=== PATIENT | female | born 2000 | race Caucasian/White ===

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

== ENCOUNTER 2019-01-08 00:45 | Emergency (ER) | payer MEDICAID ==
[2019-01-08 01:01] VITALS: BP 123/48; PULSE 91
[2019-01-08] MEDS ORDERED: predniSONE 20 MG Tab PO ONE (01:24)
--- NOTE | 2019-01-08 01:57 | EDM.PDOC ---
ED HPI GENERAL MEDICAL PROBLEM - General Chief Complaint: Lower Extremity Injury/Pain Stated Complaint: LEFT LEG PAIN Time Seen by Provider: 01/08/19 01:11 Source of Information: Reports: Patient, RN Notes Reviewed - History of Present Illness INITIAL COMMENTS - FREE TEXT/NARRATIVE: 18 year old female comes in with LLE pain. This first started about 3 wks ago. Was primarily L lateral mid thigh and now since last evening radiating down her leg clear to her foot. No weakness, numbness or tingling. Not aware of any injury. No visible swelling. No chest pain or difficulty breathing. Left Upper Leg Pain Score (Numeric/FACES): 5 - Related Data Allergies Allergy/AdvReac Type Severity Reaction Status Date / Time No Known Allergies Allergy Verified 01/08/19 00:59 Home Meds: Home Meds predniSONE [Prednisone] 50 mg PO DAILY #5 tablet 01/08/19 [Rx] Past Medical History - Past Health History Medical/Surgical History: Denies Medical/Surgical History HEENT History: Reports: Impaired Vision Cardiovascular History: Reports: Hypertension MECHANICAL SUPERVISOR History: Reports: Other (See Below) Other MECHANICAL SUPERVISOR History: implant for control Psychiatric History: Reports: ADHD, Anxiety, Bipolar, Depression, Emotional Problems, Psych Hospitalization(s), Suicide Attempt Other Psychiatric History: BPD Endocrine/Metabolic History: Reports: Obesity/BMI 30+ - Past Surgical History HEENT Surgical History: Reports: Oral Surgery Social & Family History - Family History Family Medical History: Noncontributory - Tobacco Use Smoking Status *Q: Former Smoker Used Tobacco, but Quit: Yes Month/Year Tobacco Last Used: 12/2018 - Caffeine Use Caffeine Use: Reports: Coffee - Recreational Drug Use Recreational Drug Use: Yes Recreational Drug Type: Reports: Marijuana/Hashish - Living Situation & Occupation Living situation: Reports: Single, Other Occupation: Unemployed Review of Systems - Review of Systems Review Of Systems: See Below Constitutional: Reports: No Symptoms Mouth/Throat: Reports: No Symptoms Respiratory: Denies: Shortness of Breath Cardiovascular: Denies: Chest Pain GI/Abdominal: Denies: Abdominal Pain, Nausea, Vomiting Genitourinary: Reports: No Symptoms Musculoskeletal: Reports: Leg Pain. Denies: Back Pain Skin: Reports: No Symptoms Neurological: Denies: Numbness, Tingling, Weakness ED EXAM, GENERAL - Physical Exam Exam: See Below General Appearance: Alert, No Apparent Distress Throat/Mouth: Normal Inspection Head: Atraumatic Neck: Supple Respiratory/Chest: No Respiratory Distress, Lungs Clear Cardiovascular: Regular Rate, Rhythm Back Exam: No: CVA Tenderness (L), CVA Tenderness (R), Paraspinal Tenderness, Vertebral Tenderness Extremities: Normal Inspection, Other (upper and lower legs nontender, no swelling or bruising). No: Leg Pain, Increased Warmth, Redness Neurological: No Motor/Sensory Deficits, Other (very mild pain with L straight leg raising) Skin Exam: Warm, Dry, Normal Color, No Rash Course - Vital Signs Last Recorded V/S: Last Vital Signs Temp 96.8 F 01/08/19 00:59 Pulse 91 01/08/19 00:59 Resp 18 01/08/19 00:59 BP 123/48 L 01/08/19 00:59 Pulse Ox 98 01/08/19 00:59 - Orders/Labs/Meds Meds: Medications Discontinued Medications Generic Name Dose Route Start Last Admin Trade Name Justo PRN Reason Stop Dose Admin Prednisone 60 mg 01/08/19 01:24 01/08/19 01:39 Prednisone PO 01/08/19 01:25 60 mg ONETIME ONE Administration Departure - Departure Time of Disposition: 01:58 Disposition: Home, Self-Care 01 Condition: Fair Clinical Impression: Sciatica Qualifiers: Laterality: left Qualified Code(s): M54.32 - Sciatica, left side - Discharge Information Prescriptions: predniSONE [Prednisone] 50 mg PO DAILY #5 tablet Instructions: Sciatica Referrals: PCP,None [Primary Care Provider] - Forms: ED Department Discharge Additional Instructions: Continue Advil or ibuprofen, take 3 tabs or 600 mg 3 times daily with food for pain and inflammation, disown 50 mg daily for the next 5 days. Alternate ice and heat to area of discomfort as needed. Follow-up [facility] medical clinic with one of our medical providers early next week. Call [phone] for appointment.
== END 2019-01-08 02:05 | disposition home or self-care (01) ==
LOC: JD.ED 00:45
DX: M54.32 Sciatica, left side (principal); I10 Essential (primary) hypertension; E66.9 Obesity, unspecified; Z68.54 Body mass index [BMI] pediatric, 95th percentile for age to less than 120% of the 95th percentile for age; Z87.891 Personal history of nicotine dependence; Z79.899 Other long term (current) drug therapy
CPT/HCPCS: 99283; A9270

== ENCOUNTER 2019-10-07 21:53 | Emergency (ER) | payer MEDICAID ==
[2019-10-07 22:04] VITALS: BP 103/44; PULSE 93
--- NOTE | 2019-10-07 22:35 | EDM.PDOC ---
ED HPI GENERAL MEDICAL PROBLEM - General Chief Complaint: LEAF SIZE PICKER Problem Stated Complaint: OB ISSUES Time Seen by Provider: 10/07/19 22:04 Source of Information: Reports: Patient, Other (Friend) History Limitations: Reports: No Limitations - History of Present Illness INITIAL COMMENTS - FREE TEXT/NARRATIVE: Ms. Patricia is a pleasant 19-year-old woman with a past medical history s ignificant for anxiety, depression, bipolar affective disorder, ADHD, and borderline personality disorder, who now presents the ED stating that she has Nexplanon, and therefore does not regularly menstruate, however, she developed some vaginal spotting around 14:00 today, therefore she inserted a tampon. When she went to remove it around 20:30 to 21:00 this evening, she was unable to find the string or palpate the tampon. She is concerned that it has moved up into her vagina. There is no associated pain. No prior similar symptoms. Here in the ED, the patient's BP is found to be mildly low at 103/44, otherwise, she is hemodynamically stable, afebrile, saturating 99% on room air. Other than today's event, the patient denies recent fever, chills, sore throat, ear pain, nasal or sinus congestion, cough, dyspnea, chest pain, palpitations, nausea, vomiting, constipation, diarrhea, abdominal pain, urinary symptoms, recent weight gain or weight loss, recent bloody bowel movements or black bowel movements, recent joint aches, headaches, or rashes. The patient's Emergency Communications Dispatcher is Dr. Marian Mehta. - Related Data Allergies Allergy/AdvReac Type Severity Reaction Status Date / Time No Known Allergies Allergy Verified 10/07/19 22:04 Home Meds: Home Meds ClonazePAM [KlonoPIN] 0.5 mg PO DAILY 10/07/19 [History] Venlafaxine HCl [Venlafaxine ER] 37.5 mg PO DAILY 10/07/19 [History] Past Medical History HEENT History: Reports: Impaired Vision Psychiatric History: Reports: ADHD, Anxiety, Bipolar, Depression, Emotional Problems, Psych Hospitalization(s), Suicide Attempt, Other (See Below) (Borderline personality disorder) Endocrine/Metabolic History: Reports: Obesity/BMI 30+ - Past Surgical History HEENT Surgical History: Reports: Oral Surgery (wisdom teeth extraction) Social & Family History - Family History Family Medical History: Noncontributory - Tobacco Use Smoking Status *Q: Current Every Day Smoker Tobacco Use Within Last Twelve Months: Vaping (nicotine and THC) - Caffeine Use Caffeine Use: Reports: None - Alcohol Use Alcohol Use History: Yes Alcohol Use Frequency: Socially - Recreational Drug Use Recreational Drug Use: Yes Drug Use in Last 12 Months: Yes Recreational Drug Type: Reports: Marijuana/Hashish (smokes regularly) - Living Situation & Occupation Living situation: Reports: Single, Other (Roomate) Occupation: Employed ([employer]) ED ROS GENERAL - Review of Systems Review Of Systems: Comprehensive ROS is negative, except as noted in HPI. ED EXAM, RENAL/ - Physical Exam Exam: See Below Exam Limited By: No Limitations General Appearance: Alert, WD/WN, No Apparent Distress (Female) Exam: Normal External Exam, Other (There is a small amount of old blood in the vagina, but no active bleeding. The cervix is closed and nulliparous.) Course - Vital Signs Last Recorded V/S: Last Vital Signs Temp 37.0 C 10/07/19 22:03 Pulse 93 10/07/19 22:03 Resp 16 10/07/19 22:03 BP 103/44 L 10/07/19 22:03 Pulse Ox 99 10/07/19 22:03 - Re-Assessments/Exams Free Text/Narrative Re-Assessment/Exam: 10/07/19 22:30 On careful speculum examination, there was a small amount of old blood seen in the vagina, with a nonbleeding closed nulliparous cervix, but no foreign body, such as a tampon, in the vagina. The patient may safely be discharged home. Departure - Departure Time of Disposition: 22:33 Disposition: Home, Self-Care 01 Condition: Good Clinical Impression: Vaginal spotting - Discharge Information *PRESCRIPTION DRUG MONITORING PROGRAM REVIEWED*: Not Applicable *COPY OF PRESCRIPTION DRUG MONITORING REPORT IN PATIENT JESSICA: Not Applicable Referrals: Marian Mehta MD [Physician] - Forms: ED Department Discharge Additional Instructions: You were seen in the emergency room over concern of a retained tampon in the vagina, when the string could not be felt. On speculum examination of your vagina, no tampon was present. You may resume your usual activities. If any other problems, please do not hesitate to return to the ER. Sepsis Event Note (ED) - Evaluation Sepsis Screening Result: No Definite Risk - Focused Exam Vital Signs: Vital Signs Temp Pulse Resp BP Pulse Ox 10/07/19 22:03 37.0 C 93 16 103/44 L 99
== END 2019-10-07 22:54 | disposition home or self-care (01) ==
LOC: JD.ED 21:53
DX: N93.9 Abnormal uterine and vaginal bleeding, unspecified (principal); F41.9 Anxiety disorder, unspecified; F31.9 Bipolar disorder, unspecified; F90.9 Attention-deficit hyperactivity disorder, unspecified type; F17.290 Nicotine dependence, other tobacco product, uncomplicated; E66.9 Obesity, unspecified; Z68.41 Body mass index [BMI] 40.0-44.9, adult; Z79.899 Other long term (current) drug therapy
CPT/HCPCS: 99283

== ENCOUNTER 2019-11-21 19:31 | Emergency (ER) | payer MEDICAID ==
[2019-11-21 19:45] VITALS: BP 92/76; PULSE 96
--- NOTE | 2019-11-21 20:01 | EDM.PDOC ---
ED HPI GENERAL MEDICAL PROBLEM - General Chief Complaint: Lower Extremity Injury/Pain Stated Complaint: right ankle pain Time Seen by Provider: 11/21/19 19:32 Source of Information: Reports: Patient History Limitations: Reports: No Limitations - History of Present Illness INITIAL COMMENTS - FREE TEXT/NARRATIVE: Patient is a 19-year-old female who presents to the emergency department with complaints of right ankle pain. States that she rolled her ankle about 30 minutes prior to coming to the ER. She felt a pop and has been having pain to the lateral malleolus ever since. She has been able to bear weight on the extremity. She presents with an ankle brace that she had at home. She denies any previous injury to this extremity. Right Ankle Pain Score (Numeric/FACES): 6 - Related Data Allergies Allergy/AdvReac Type Severity Reaction Status Date / Time No Known Allergies Allergy Verified 11/21/19 19:45 Home Meds: Home Meds ClonazePAM [KlonoPIN] 0.5 mg PO DAILY 10/07/19 [History] Venlafaxine HCl [Venlafaxine ER] 37.5 mg PO DAILY 10/07/19 [History] Past Medical History - Past Health History Medical/Surgical History: Denies Medical/Surgical History HEENT History: Reports: Impaired Vision Cardiovascular History: Reports: Hypertension [employer] History: Reports: Other (See Below) Other [employer] History: implant for control Psychiatric History: Reports: ADHD, Anxiety, Bipolar, Depression, Emotional Problems, Psych Hospitalization(s), Suicide Attempt, Other (See Below) Other Psychiatric History: BPD Endocrine/Metabolic History: Reports: Obesity/BMI 30+ - Past Surgical History HEENT Surgical History: Reports: Oral Surgery Social & Family History - Family History Family Medical History: Noncontributory - Tobacco Use Smoking Status *Q: Current Every Day Smoker Years of Tobacco use: 2 Packs/Tins Daily: 0.5 - Caffeine Use Caffeine Use: Reports: Coffee, Soda - Recreational Drug Use Recreational Drug Use: Yes Drug Use in Last 12 Months: Yes Recreational Drug Type: Reports: Marijuana/Hashish Recreational Drug Use Frequency: Monthly - Living Situation & Occupation Living situation: Reports: Single, Other (Roomate) Occupation: Employed (Hotel) Review of Systems - Review of Systems Review Of Systems: Comprehensive ROS is negative, except as noted in HPI. ED EXAM, GENERAL - Physical Exam Exam: See Below Exam Limited By: No Limitations General Appearance: Alert, WD/WN, No Apparent Distress Respiratory/Chest: No Respiratory Distress, Lungs Clear, Normal Breath Sounds, No Accessory Muscle Use, Chest Non-Tender Cardiovascular: Normal Peripheral Pulses, Regular Rate, Rhythm, No Edema, No Gallop, No JVD, No Murmur, No Rub Extremities: Other (Small amount of edema and tenderness to palpation to the lateral malleoli are area of the right ankle. No obvious deformity. Patient has full range of motion of the ankle, however it is painful.) Neurological: Alert, Oriented, CN II-XII Intact, Normal Cognition, Normal Gait, Normal Reflexes, No Motor/Sensory Deficits Psychiatric: Normal Affect, Normal Mood Course - Vital Signs Last Recorded V/S: Last Vital Signs Temp 99.2 F 11/21/19 19:37 Pulse 96 11/21/19 19:37 Resp 18 11/21/19 19:37 BP 92/76 11/21/19 19:37 Pulse Ox 97 11/21/19 19:37 - Orders/Labs/Meds Orders: Active Orders 24 hr Category Date Time Status Ankle Min 3V Rt [CR] Stat Exams 11/21/19 19:46 Taken - Re-Assessments/Exams Free Text/Narrative Re-Assessment/Exam: 11/21/19 20:14 X-ray of the right ankle was negative for any acute fractures. We will provide the patient with an air splint for comfort. Advised if she still having pain after 1 week, that she should follow-up in the clinic with Dr. Benavidez. Discharge instructions as documented. Departure - Departure Time of Disposition: 20:15 Disposition: Home, Self-Care 01 Condition: Good Clinical Impression: Ankle sprain Qualifiers: Encounter type: initial encounter Involved ligament of ankle: unspecified ligament Laterality: right Qualified Code(s): S93.401A - Sprain of unspecified ligament of right ankle, initial encounter - Discharge Information *PRESCRIPTION DRUG MONITORING PROGRAM REVIEWED*: No *COPY OF PRESCRIPTION DRUG MONITORING REPORT IN PATIENT JESSICA: No Instructions: Ankle Sprain, [id number] Referrals: Raul Benavidez MD [Physician] - Forms: ED Department Discharge Additional Instructions: You were seen in the emergency department this evening for pain to your right ankle. Xrays were completed and show no visible fractures. It is likely that you sprain the lateral ligaments of your ankle. You have been provided an air splint. Wear this for comfort over the next few days. Recommend that you ice and elevated the ankle when at rest. You may use over the counter tylenol or ibuprofen as needed for pain. If you are still have significant discomfort after 1 weeks, recommend that you schedule an appointment with orthopedist, Dr. Benavidez. Return to the ER as needed. Sepsis Event Note (ED) - Evaluation Sepsis Screening Result: No Definite Risk - Focused Exam Vital Signs: Vital Signs Temp Pulse Resp BP Pulse Ox 11/21/19 19:37 99.2 F 96 18 92/76 97 - My Orders Last 24 Hours: My Active Orders 11/21/19 19:46 Ankle Min 3V Rt [CR] Stat - Assessment/Plan Last 24 Hours: My Active Orders 11/21/19 19:46 Ankle Min 3V Rt [CR] Stat
--- NOTE | 2019-11-21 20:40 | CR ---
Right ankle: 4 views of the right ankle were obtained. Comparison: No previous right ankle study. Ankle mortise is symmetric. No fracture, dislocation or other bony abnormality is appreciated. Impression: 1. No acute abnormality is appreciated on right ankle exam. Diagnostic code #1 This report was dictated in MDT
== END 2019-11-21 20:40 | disposition home or self-care (01) ==
LOC: JD.ED 19:31
DX: S93.401A Sprain of unspecified ligament of right ankle, initial encounter (principal); I10 Essential (primary) hypertension; F31.9 Bipolar disorder, unspecified; F41.9 Anxiety disorder, unspecified; E66.9 Obesity, unspecified; Z68.41 Body mass index [BMI] 40.0-44.9, adult; F17.210 Nicotine dependence, cigarettes, uncomplicated; X50.9XXA Other and unspecified overexertion or strenuous movements or postures, initial encounter
CPT/HCPCS: 73610-26-RT; 73610-RT; 99283

== ENCOUNTER 2022-03-10 02:09 | Emergency (ER) | payer MEDICAID ==
[2022-03-10 05:37] VITALS: BP 132/79; PULSE 81
== END 2022-03-10 05:33 | disposition home or self-care (01) ==
LOC: JD.ED 02:09
DX: S83.411A Sprain of medial collateral ligament of right knee, initial encounter (principal); F17.290 Nicotine dependence, other tobacco product, uncomplicated; E66.9 Obesity, unspecified
CPT/HCPCS: 36415; 85610; 85730; 93971-26-RT; 93971-RT; 99284

== ENCOUNTER 2023-03-03 18:33 | Emergency (ER) | payer MEDICAID ==
[2023-03-03] MEDS ORDERED: Alum Hydrox/Mag Hydrox/Simeth 30 ML, Lidocaine 2% 15 ML PO ONE ×2 (18:56)
[2023-03-03] MEDS ORDERED: Famotidine 20 MG Tab PO ONE (18:57)
[2023-03-03 19:27] LABS: BASOPHILS ABSOLUTE AUTO 0.1 K/mm3 (0.0-0.2); BASOPHILS PERCENT AUTO 0.6 % (0.0-1.0); EOSINOPHILS ABSOLUTE AUTO 0.3 K/mm3 (0.0-0.4); EOSINOPHILS PERCENT AUTO 4.1 % (0.0-6.0); HEMATOCRIT 39.6 % (37.0-47.0); HEMOGLOBIN 13.2 gm/dl (12.0-16.0); IMMATURE GRAN ABSOLUTE AUTO 0.01 K/mm3 (0.00-0.05); IMMATURE GRAN PERCENT AUTO 0.1 % (0.0-0.4); LYMPHOCYTES ABSOLUTE AUTO 2.1 K/mm3 (1.0-4.8); LYMPHOCYTES PERCENT AUTO 26.9 % (24.0-44.0); MEAN CORPUSCULAR HEMOGLOBIN 28.1 pg (28.0-32.0); MEAN CORPUSCULAR HGB CONC 33.3 g/dl (32.0-36.0); MEAN CORPUSCULAR VOLUME 84.4 fl (83.0-99.0); MEAN PLATELET VOLUME 9.3 fl (9.4-12.3); MONOCYTES ABSOLUTE AUTO 0.5 K/mm3 (0.0-0.8); MONOCYTES PERCENT AUTO 6.4 % (0.0-8.0); NEUTROPHILS ABSOLUTE AUTO 4.8 K/mm3 (1.8-7.7); NEUTROPHILS PERCENT AUTO 61.9 % (41.0-71.0); PLATELET COUNT,PLT 284 K/mm3 (150-400); RED BLOOD CELL COUNT 4.69 M/mm3 (4.10-5.30); WHITE BLOOD CELL COUNT,WBC 7.78 K/mm3 (3.9-11.3)
[2023-03-03 19:51] LABS: ALANINE AMINOTRANSFERASE,ALT 22 U/L (14-59); ALBUMIN 3.7 g/dl (3.4-5.0); ALKALINE PHOSPHATASE 67 U/L (46-116); ANION GAP 16.8 (5-15); ASPARTATE AMNIOTRANSFERASE,AST 13 U/L (15-37); BILIRUBIN TOTAL 0.3 mg/dL (0.2-1.0); BLOOD UREA NITROGEN,BUN 16 mg/dL (7-18); BUN/CREATININE RATIO 17.8 (14-18); CALCIUM 8.9 mg/dL (8.5-10.1); CARBON DIOXIDE,CO2 23 mEq/L (21-32); CHLORIDE,CL 103 mEq/L (98-107); CREATININE 0.9 mg/dL (0.55-1.02); ESTIMATED GFR 92 mL/min (>60); GLUCOSE RANDOM 92 mg/dL (70-99); POTASSIUM,K 3.8 mEq/L (3.5-5.1); PROTEIN TOTAL,TP 7.3 g/dl (6.4-8.2); SODIUM,NA 139 mEq/L (136-145); TROPONIN I HIGH SENSITIVITY < 4 pg/mL (<=51)
[2023-03-03 20:02] VITALS: BP 118/78; PULSE 79
== END 2023-03-03 20:10 | disposition home or self-care (01) ==
LOC: JD.ED 18:33
DX: K21.9 Gastro-esophageal reflux disease without esophagitis (principal); R07.89 Other chest pain; E66.9 Obesity, unspecified; Z86.16 Personal history of COVID-19; Z68.42 Body mass index [BMI] 45.0-49.9, adult
CPT/HCPCS: 36415; 71046; 80053; 84484; 85025; 85379; 93005; 99285; A9270; 93010; 99284

== ENCOUNTER 2023-07-09 19:14 | Emergency (ER) | payer MEDICAID ==
[2023-07-09] MEDS: Amoxicillin/Clavulanate K 875-125 MG Tab PO ONE (20:07)
[2023-07-09] MEDS: Ketorolac 60 MG/2 ML SDV IM ONE (20:07)
[2023-07-09 20:17] VITALS: BP 143/87; PULSE 76
== END 2023-07-09 20:20 | disposition home or self-care (01) ==
LOC: JD.ED 19:14
DX: K02.9 Dental caries, unspecified (principal); K08.89 Other specified disorders of teeth and supporting structures; E66.9 Obesity, unspecified; Z86.16 Personal history of COVID-19
CPT/HCPCS: 96372; 99283; A9270; J1885

== ENCOUNTER 2023-07-16 04:58 | Emergency (ER) | payer MEDICAID ==
[2023-07-16 05:08] VITALS: BP 154/113; PULSE 88
[2023-07-16] MEDS: Acetaminophen/HYDROcodone 325-5 MG Tab PO ONE (05:17)
== END 2023-07-16 05:28 | disposition home or self-care (01) ==
LOC: JD.ED 04:58
DX: K02.9 Dental caries, unspecified (principal); Z86.16 Personal history of COVID-19; Z79.899 Other long term (current) drug therapy
CPT/HCPCS: 99282; A9270